=== PATIENT | female | born 1995 | race Caucasian/White ===

== ENCOUNTER 2016-06-08 05:58 | Emergency (ER) | payer BC ==
[~2016-06-08] VITALS: Ht 165.1 cm; Wt 67.3 kg
[~2016-06-08 05:58] MED LIST: AMBIEN 10MG10 MG PO; GLUCOPHAGE500 MG/TAB PO; MELATONIN CR3 MG PO; NORCO 325 MG-51 TAB PO; PAROXETIN10 MG PO; STRATTERA60 MG PO; TYLENOL PM EXTR1 TA1 PO; [UNRECOGNIZED DRUG - OTHER] PO
[2016-06-08] MEDS ORDERED: DESYREL 50MG50 MG PO (06:07)
[2016-06-08] MEDS ORDERED: METADATECD10 PO (06:07)
[2016-06-08] MEDS ORDERED: EFFEXOR XR75 MG/CAP PO (06:07)
[2016-06-08 07:06] LABS: BASO % 0.4 % (0.0-2.0); EOS # 0.2 (0.0-0.7); EOS % 1.3 % (0-4.0); GRAN # 8.2 (1.4-6.5); GRAN % 73.7 % (42.2-75.2); HEMOGLOBIN 13.5 g/dl (12.0-15.0); LYMPH # 2.1 (1.2-3.4); LYMPH % 18.8 % (20.0-51.0); MEAN CELL VOLUME 92 fl (80.0-95.0); MEAN CORPUSCULAR HEMOGLOBIN 31 pg (26.0-32.0); MEAN CORPUSCULAR HGB CONC 34 g/dl (33.0-37.0); MEAN PLATELET VOLUME 10.8 fl (7.4-10.4); MONO # 0.6 (0.1-0.6); MONO % 5.4 % (1.7-9.3); PLATELET COUNT 261 K/mm3 (130-400); RED BLOOD COUNT 4.37 M/mm3 (4.10-5.30); REDCELL DISTRIBUTION WIDTH-CV 13.3 % (11.5-14.5); WHITE BLOOD COUNT 11.2 K/mm3 (4.8-10.8)
[2016-06-08 07:19] LABS: ADJUSTED CALCIUM 9.2 mg/dL (8.4-10.2); BILIRUBIN,TOTAL 0.4 mg/dL (0.0-1.0); CALCIUM 9.2 mg/dL (8.4-10.2); CREATININE, serum 0.7 mg/dL (0.52-1.25); POTASSIUM 3.5 mmol/L (3.4-5.0); TOTAL PROTEIN 7.4 gm/dL (6.4-8.2)
[2016-06-08 07:23] LABS: PH 6 (5-8); URINE APPEARANCE Cloudy; URINE BACTERIA Rare /hpf; URINE BILIRUBIN Negative (NEGATIVE); URINE BLOOD 3+ (NEGATIVE); URINE COLOR Yellow; URINE GLUCOSE Negative (NEGATIVE); URINE KETONE Negative (NEGATIVE); URINE RBC 20-50 /hpf; URINE UROBILINOGEN Negative (NEGATIVE)
[2016-06-08 08:40] VITALS: BP 101/70; PULSE 72; TEMP 98.2
== END 2016-06-08 08:41 | disposition home or self-care (01) ==
LOC: COL.ER 05:58
PROVIDERS: Emergency Medicine
DX: N20.1 Calculus of ureter (principal)
CPT/HCPCS: J2765; J3010; J7030; Q9967

== ENCOUNTER 2019-11-18 09:11 | Emergency (ER) | payer OTHER ==
[~2019-11-18] VITALS: Ht 165.1 cm; Wt 81.8 kg
[~2019-11-18 09:11] MED LIST changes: +DESYREL 50MG50 MG PO; +EFFEXOR XR75 MG/CAP PO; +METADATECD10 PO
[2019-11-18 09:16] VITALS: BP 145/81; TEMP 98.1
[2019-11-18] MEDS ORDERED: EFFEXOR-XR150 MG PO (09:19)
[2019-11-18] MEDS ORDERED: ALLEGRA 180MG180 MG PO (09:20)
[2019-11-18] MEDS ORDERED: AMOXICILLIN 8751 TAB PO (09:34)
[2019-11-18 10:10] VITALS: PULSE 95
== END 2019-11-18 10:10 | disposition home or self-care (01) ==
LOC: COL.ER 09:11
DX: S51.831A Puncture wound without foreign body of right forearm, initial encounter (principal); R11.0 Nausea; F90.9 Attention-deficit hyperactivity disorder, unspecified type; F41.9 Anxiety disorder, unspecified; G47.00 Insomnia, unspecified; F17.210 Nicotine dependence, cigarettes, uncomplicated; W54.0XXA Bitten by dog, initial encounter; Y92.009 Unspecified place in unspecified non-institutional (private) residence as the place of occurrence of the external cause